=== PATIENT | female | born 1950 | race Caucasian/White ===

== ENCOUNTER 2017-02-21 09:17 | Outpatient (RCR) | payer MEDICARE ==
[~2017-02-21] VITALS: Ht 147.3 cm; Wt 57.6 kg
[~2017-02-21 09:17] MED LIST changes: +ALTEPLASE RECOMB 2 MG VIAL IVP PRN; +DEXTROSE 5%(*) 100 ML BAG 100 ML IVPB PRN; +HEPARIN FLSH (PORT) 500 UN/5ML IVP PRN; +LIDOCAINE/SOD BICARB 8.4% SYR ID PRN; +NS(*) 0.9% 100 ML BAG 100 ML IVPB PRN; +NS(*) 0.9% 500 ML BAG 500 ML IV PRN; +WATER STERILE 10 ML VIAL IVP PRN
[2017-02-21 09:32] VITALS: BP 162/79
[2017-02-21 10:17] LABS: PLATELET COUNT, AUTOMATED 310 K/uL (150-450)
== END 2017-02-24 09:10 | disposition home or self-care (01) ==
LOC: SPU 09:17
PROVIDERS: ATTEND Internal Medicine Hematology
DX: C82.03 Follicular lymphoma grade I, intra-abdominal lymph nodes (principal); M81.0 Age-related osteoporosis without current pathological fracture
CPT/HCPCS: 36591; 83615; 84550; 85025; G0463; J1642; 36415; 82040; 82247; 82310; 82374; 82435; 82565; 82947; 84075; 84132; 84155; 84295; 84450; 84460; 84520; 85610; 99212

== ENCOUNTER → 2017-02-21 | Outpatient (CLI) | payer MEDICARE ==
[~2017-02-21] MED LIST: ACET-2708 PO; ALEN70TA43 PO; ALLO100T70 PO; ATOR20TA22 PO; CALC-734 PO; CALC625T80 PO; CYCL10TA29 PO; FLUT9.9S; GLIP-175 PO; GLIP2.5T14 PO; GUAI1200 PO; HCTZ25 PO; HYDR-385 PO; HYDR-4309 PO; LEV75 PO; LIS10 PO; LISI-362 PO; LISI5TAB25 PO; LOR5 PO; LORA-1456 PO; LORA-799 PO; METF-410 PO; METH4TAB66 PO; PIOG30TA27 PO; POTA20TA85 PO; POTA99TA6 PO; PROC10TA4 PO; WAR5 PO; [UNRECOGNIZED DRUG - CODE] PO
[2017-02-21 11:38] LABS: INR 2.51
== END ==
LOC: LAB 11:13
PROVIDERS: ATTEND Nurse Practitioner Family
DX: Z51.81 Encounter for therapeutic drug level monitoring (principal); Z79.01 Long term (current) use of anticoagulants
CPT/HCPCS: 36415; 85610

== ENCOUNTER → 2017-02-21 | Outpatient (CLI) | payer MEDICARE ==
--- NOTE | 2017-02-21 17:13 | ONCOLOGY FOLLOW UP NOTE ---
EVENT DATE: February 21, 2017 DIAGNOSES 1. Stage IV follicular lymphoma, grade 1. 2. History of skin cancer. 3. History of blood clots, on lifelong anticoagulation. 4. Diabetes mellitus. 5. Hypothyroidism. 6. Osteoporosis. 7. History of glaucoma. CHIEF COMPLAINT The patient is here today for followup of her follicular lymphoma. ONCOLOGY HISTORY The patient is a 66-year-old female. PRESENTATION Abdominal pain. DIAGNOSTIC EVALUATION CT scan abdomen and pelvis revealed a 12 cm abdominal mass invading into the mesentery. PROCEDURE CT scan-guided biopsy of the abdominal mass done on April 29, 2013 revealed a B- cell lymphoma consistent with low-grade follicular lymphoma, grade 1. STAGING WORKUP 1. PET/CT scan done on June 07, 2013 revealed hypermetabolic lymphoma in the neck, chest, abdomen and pelvis. 2. Bone marrow aspiration biopsy done on June 01, 2013 was positive for non- Hodgkins lymphoma of follicular center cell origin. STAGE Stage IV follicular lymphoma, grade 1. TREATMENT 1. The patient will start treatment with rituximab and bendamustine on June 30, 2013. The patient completed 8 courses of rituximab and bendamustine on January 20, 2014. 2. The patient has started maintenance rituximab therapy on March 16, 2014. The patient completed 12 courses of maintenance rituximab therapy on January. HISTORY OF PRESENT ILLNESS Patient is here today for followup of her follicular lymphoma in remission. She is complaining of cough with expectoration recently. She is weak, tired and fatigued, but other than that she denies any other problem. She denies any B symptoms. PAST MEDICAL HISTORY 1. Skin cancers. 2. Blood clots, arterial, on lifelong anticoagulation. 3. Diabetes. 4. Hypothyroidism. 5. Osteoporosis. 6. History of glaucoma. PAST SURGICAL HISTORY 1. section. 2. Rotator cuff repair. 3. Right leg arterial clot removed. SOCIAL HISTORY Spouse from cancer. She does not drink, but she does smoke four to six cigarettes per day. She is interested in quitting at this time, but will consider. She does not chew tobacco or utilize illicit drugs. FAMILY HISTORY Sisters with basal cell carcinomas. MEDICATIONS 1. Lorazepam 1 mg tablet q.4-6 hourly as needed for nausea or vomiting. 2. Fosamax 70 mg weekly. 3. Calcium with vitamin D 1 tablet daily. 4. Lisinopril 10 mg daily. 5. Glipizide 2.5 mg once daily. 6. Flonase allergy relief spray. 7. Tylenol PM p.r.n. at bedtime. 8. Metformin 500 mg twice daily. 9. Levothyroxine 88 mcg daily. 10. Hydrochlorothiazide 25 mg daily. 11. Warfarin 10 mg daily. ALLERGIES CLINDAMYCIN. REVIEW OF SYSTEMS CONSTITUTIONAL: The patient has chills sometimes. HEENT: Ears: No tinnitus or hearing problem. Nose: She has nasal discharge. Throat: No sore throat or mouth ulcers. Eyes: No diplopia or visual changes. RESPIRATORY: She has cough and expectoration from recent upper respiratory tract infection. GASTROINTESTINAL: She has occasional nausea. MUSCULOSKELETAL: She has pain in the knees. HEMATOLOGICAL: She is weak, tired and fatigued. CARDIOVASCULAR: No chest pain, orthopnea, or paroxysmal nocturnal dyspnea (PND) . No edema. No palpitations. GENITOURINARY: She has recurrent UTI lately. NEUROLOGICAL: No tingling or numbness in the hands or feet. No headaches or convulsions. SKIN: No skin rash or lumps. PSYCHIATRIC: No anxiety or depression. PHYSICAL EXAMINATION GENERAL: Looks stable. Well-developed, well-nourished, and in no acute distress. VITAL SIGNS: Blood pressure 167/79, pulse 72 per minute, respirations 16 per minute, temperature 98.2, pulse ox 97% on room air. HEENT: Head: Atraumatic. Positive for sinus tenderness to palpation in the frontal sinuses. Eyes: No icterus or conjunctivitis. Mouth and throat: No oral thrush or mucositis. Posterior pharynx erythema. NECK: Supple. No cervical or supraclavicular lymphadenopathy. LUNGS: Clear to auscultation and percussion bilaterally. HEART: Regular rate and rhythm. No gallops, murmurs, clicks or rubs. ABDOMEN: Soft and non-tender. No hepatosplenomegaly. No masses. EXTREMITIES: No cyanosis, clubbing or edema. LYMPHATICS: The bilateral palpable axillary lymph nodes are essentially resolved after one cycle of bendamustine. NEUROLOGICAL: Conscious, alert and oriented times three. Cranial nerves II through XII are grossly intact. PSYCHIATRIC: Mood and affect appear normal. SKIN: No skin rash, bruise or purpuric eruption. DIAGNOSTIC DATA Pending. ASSESSMENT 1. Stage IV follicular lymphoma grade 1 with involvement of lymph nodes in the neck, chest, abdomen and pelvis with involvement of the bone marrow, proven by bone marrow biopsy done June 01, 2013. Patient received eight cycles of rituximab and bendamustine between July 01, 2013 through January 17, 2014. She received after that 12 courses of maintenance rituximab therapy between March 16, 2014 through January 25, 2016. She is currently in complete remission. I am planning to continue followup. I will see her again in four months with CBC , chem panel, LDH and uric acid. 2. History of blood clots, on lifelong anticoagulation. 3. Hypothyroidism, on treatment. 4. Diabetes mellitus, on treatment. 5. Osteoporosis, on Fosamax. PLAN 1. Continue followup. 2. Patient to return in four months with CBC, chem panel, LDH, uric acid. 3. Patient is to contact us for any new concerns or complaints. MTDD
== END ==
LOC: SPU 09:43
PROVIDERS: ATTEND Nurse Practitioner Family
DX: Z85.72 Personal history of non-Hodgkin lymphomas (principal); Z79.01 Long term (current) use of anticoagulants; E03.9 Hypothyroidism, unspecified; E11.9 Type 2 diabetes mellitus without complications; M85.80 Other specified disorders of bone density and structure, unspecified site; Z85.828 Personal history of other malignant neoplasm of skin; R05 Cough; R53.1 Weakness; R53.83 Other fatigue

== ENCOUNTER → 2017-02-27 | Outpatient (CLI) | payer MEDICARE ==
[~2017-02-27] MED LIST changes: -ALTEPLASE RECOMB 2 MG VIAL IVP PRN; -DEXTROSE 5%(*) 100 ML BAG 100 ML IVPB PRN; -HEPARIN FLSH (PORT) 500 UN/5ML IVP PRN; -LIDOCAINE/SOD BICARB 8.4% SYR ID PRN; -NS(*) 0.9% 100 ML BAG 100 ML IVPB PRN; -NS(*) 0.9% 500 ML BAG 500 ML IV PRN; -WATER STERILE 10 ML VIAL IVP PRN
--- NOTE | 2017-02-27 13:36 | RADIOLOGY IMAGING REPORT ---
FACILITY: [facility] PATIENT NAME: Mable Villela : 1950 MR: [id number] V: [id number] EXAM DATE: ORDERING PHYSICIAN: KIMBERLY CLEMENTS TECHNOLOGIST: Location: [facility] Patient: Mable Villela : 1950 Visit/Account:[id number] Date of Sevice: 02/27/2017 Exam type: CHEST PA AND LAT History: Copy x1 week, shortness of breath Comparison: May 23, 2015. Findings: There is mild hyperinflation lung quinones. This mild increased bronchovascular markings in the medial right lung base. There is no evidence of pleural effusions or pulmonary edema. There is a right IJ implanted port distal tip projects over the superior vena cava. Cardiac silhouette is normal IMPRESSION: 1. There is a mild increase in the bronchial vascular markings the medial right lung base which may represent underlying infiltrate and/or atelectasis. Follow-up chest recommended to assure complete c learing Report Dictated By: Annette Gold MD at 02/27/2017 1:30 PM Report E-Signed By: Annette Gold MD at 02/27/2017 1:32 PM ERICN:BRIAN
== END ==
LOC: RAD 12:46
PROVIDERS: ATTEND Nurse Practitioner Family
DX: R05 Cough (principal); R06.02 Shortness of breath
CPT/HCPCS: 71046

== ENCOUNTER → 2017-03-12 | Outpatient (CLI) | payer MEDICARE ==
--- NOTE | 2017-03-12 11:40 | RADIOLOGY IMAGING REPORT ---
FACILITY: [facility] [place] PATIENT NAME: Mable Villela : 1950 MR: [id number] V: [id number] EXAM DATE: ORDERING PHYSICIAN: KIMBERLY CLEMENTS TECHNOLOGIST: Location: [facility] [place] Patient: Mable Villela : 1950 Visit/Account:[id number] Date of Sevice: 03/12/2017 Exam type: CHEST PA AND LAT History: Productive cough and difficulty breathing x1 month Comparison: February 27, 2017. Findings: Increased bronchial vascular markings in the medial right lung base appears similar to the prior stud y. There is no evidence of pleural effusions or overt pulmonary edema. Cardiac silhouette is normal in size. His right IJ implanted port the distal tip projecting over the superior vena cava. IMPRESSION: 1. Increased buckle vascular markings the medial right lung base persist and appear similar to the p rior study. This could represent underlying infiltrate and/or atelectasis. Report Dictated By: Annette Gold MD at 03/12/2017 11:33 AM Report E-Signed By: Annette Gold MD at 03/12/2017 11:35 AM WSN:[email or web address]
== END ==
LOC: RAD 11:08
PROVIDERS: ATTEND Nurse Practitioner Family
DX: R91.8 Other nonspecific abnormal finding of lung field (principal)
CPT/HCPCS: 71046

== ENCOUNTER → 2017-04-03 | Outpatient (CLI) | payer MEDICARE ==
[2017-04-03 13:10] LABS: INR 1.96
== END ==
LOC: LAB 12:25
PROVIDERS: ATTEND Nurse Practitioner Family
DX: Z51.81 Encounter for therapeutic drug level monitoring (principal); Z79.01 Long term (current) use of anticoagulants
CPT/HCPCS: 36415; 85610

== ENCOUNTER → 2017-05-20 | Outpatient (CLI) | payer MEDICARE ==
[2017-05-20 14:10] LABS: INR 2.07
== END ==
LOC: LAB 13:44
PROVIDERS: ATTEND Nurse Practitioner Family
DX: Z51.81 Encounter for therapeutic drug level monitoring (principal); Z79.01 Long term (current) use of anticoagulants
CPT/HCPCS: 36415; 85610

== ENCOUNTER 2017-05-23 09:21 | Outpatient (RCR) | payer MEDICARE ==
[2017-03-21 09:30] VITALS: BP 144/98
[2017-03-21] MEDS: LIDOCAINE/SOD BICARB 8.4% SYR ID PRN (09:39)
[2017-03-21] MEDS: HEPARIN FLSH (PORT) 500 UN/5ML IVP PRN (09:40)
[2017-04-18 09:33] VITALS: BP 165/83
[2017-04-18] MEDS: HEPARIN FLSH (PORT) 500 UN/5ML IVP PRN (09:43)
[2017-04-18] MEDS: LIDOCAINE/SOD BICARB 8.4% SYR ID PRN (09:43)
[~2017-05-23 09:21] MED LIST changes: +ALTEPLASE RECOMB 2 MG VIAL IVP PRN; +DEXTROSE 5%(*) 100 ML BAG 100 ML IVPB PRN; +NS(*) 0.9% 100 ML BAG 100 ML IVPB PRN; +NS(*) 0.9% 500 ML BAG 500 ML IV PRN; +WATER STERILE 10 ML VIAL IVP PRN
[2017-05-23 09:26] VITALS: BP 179/89
[2017-05-23] MEDS: HEPARIN FLSH (PORT) 500 UN/5ML IVP PRN (09:33)
[2017-05-23] MEDS: LIDOCAINE/SOD BICARB 8.4% SYR ID PRN (09:33)
== END 2017-06-18 ==
LOC: SPU 09:21
PROVIDERS: ATTEND Internal Medicine Hematology
DX: C82.03 Follicular lymphoma grade I, intra-abdominal lymph nodes (principal)
CPT/HCPCS: 96523; J1642

== ENCOUNTER 2017-06-19 07:41 | Outpatient (RCR) | payer MEDICARE ==
[~2017-06-19 07:41] MED LIST changes: -ALTEPLASE RECOMB 2 MG VIAL IVP PRN; -DEXTROSE 5%(*) 100 ML BAG 100 ML IVPB PRN; -METF-410 PO; +METF-411 PO; -NS(*) 0.9% 100 ML BAG 100 ML IVPB PRN; -NS(*) 0.9% 500 ML BAG 500 ML IV PRN; -WATER STERILE 10 ML VIAL IVP PRN
[2017-06-19 09:49] VITALS: BP 164/69
[2017-06-19] MEDS ORDERED: WATER FOR INJ,STERILE 20 ML IVP PRN (10:00)
[2017-06-19] MEDS ORDERED: ALTEPLASE RECOMB 2 MG VIAL IVP PRN (10:00)
[2017-06-19] MEDS ORDERED: NS(*) 0.9% 500 ML BAG 500 ML IV PRN (10:00)
[2017-06-19] MEDS ORDERED: HEPARIN FLSH (PORT) 500 UN/5ML IVP PRN (10:00)
[2017-06-19] MEDS ORDERED: NS(*) 0.9% 100 ML BAG 100 ML IVPB PRN (10:00)
[2017-06-19] MEDS ORDERED: LIDOCAINE/SOD BICARB 8.4% SYR ID PRN (10:00)
[2017-06-19] MEDS ORDERED: DEXTROSE 5%(*) 100 ML BAG 100 ML IVPB PRN (10:00)
--- NOTE | 2017-06-19 16:33 | ONCOLOGY FOLLOW UP NOTE ---
EVENT DATE: June 19, 2017 DIAGNOSES 1. Stage IV follicular lymphoma, grade 1. 2. History of skin cancer. 3. History of blood clots, on lifelong anticoagulation. 4. Diabetes mellitus. 5. Hypothyroidism. 6. Osteoporosis. 7. History of glaucoma. CHIEF COMPLAINT The patient is here today for followup of her follicular lymphoma. ONCOLOGY HISTORY The patient is a 66-year-old female. PRESENTATION Abdominal pain. DIAGNOSTIC EVALUATION CT scan abdomen and pelvis revealed a 12 cm abdominal mass invading into the mesentery. PROCEDURE CT scan-guided biopsy of the abdominal mass done on April 29, 2013 revealed a B- cell lymphoma consistent with low-grade follicular lymphoma, grade 1. STAGING WORKUP 1. PET/CT scan done on June 07, 2013 revealed hypermetabolic lymphoma in the neck, chest, abdomen and pelvis. 2. Bone marrow aspiration biopsy done on June 01, 2013 was positive for non- Hodgkins lymphoma of follicular center cell origin. STAGE Stage IV follicular lymphoma, grade 1. TREATMENT 1. The patient will start treatment with rituximab and bendamustine on June 30, 2013. The patient completed 8 courses of rituximab and bendamustine on January 20, 2014. 2. The patient has started maintenance rituximab therapy on March 16, 2014. The patient completed 12 courses of maintenance rituximab therapy on January. HISTORY OF PRESENT ILLNESS Patient is here today for followup of her follicular lymphoma stage IV. Patient is doing fine currently. She has some constipation, using fiber for that. She has also some fatigue sometimes, but other than that she is really doing very well. Patient denies any B symptoms. PAST MEDICAL HISTORY 1. Skin cancers. 2. Blood clots, arterial, on lifelong anticoagulation. 3. Diabetes. 4. Hypothyroidism. 5. Osteoporosis. 6. History of glaucoma. PAST SURGICAL HISTORY 1. section. 2. Rotator cuff repair. 3. Right leg arterial clot removed. SOCIAL HISTORY Spouse from cancer. She does not drink, but she does smoke four to six cigarettes per day. She is interested in quitting at this time, but will consider. She does not chew tobacco or utilize illicit drugs. FAMILY HISTORY Sisters with basal cell carcinomas. MEDICATIONS 1. Lorazepam 1 mg tablet q.4-6 hourly as needed for nausea or vomiting. 2. Fosamax 70 mg weekly. 3. Calcium with vitamin D 1 tablet daily. 4. Lisinopril 10 mg daily. 5. Glipizide 2.5 mg once daily. 6. Flonase allergy relief spray. 7. Tylenol PM p.r.n. at bedtime. 8. Metformin 500 mg twice daily. 9. Levothyroxine 88 mcg daily. 10. Hydrochlorothiazide 25 mg daily. 11. Warfarin 10 mg daily. ALLERGIES CLINDAMYCIN. REVIEW OF SYSTEMS CONSTITUTIONAL: The patient has chills sometimes. HEENT: Ears: No tinnitus or hearing problem. Nose: She has nasal discharge. Throat: No sore throat or mouth ulcers. Eyes: No diplopia or visual changes. RESPIRATORY: She has cough and expectoration from recent upper respiratory tract infection. GASTROINTESTINAL: She has constipation, on fiber. MUSCULOSKELETAL: She has pain in the knees. HEMATOLOGICAL: She is weak, tired and fatigued. CARDIOVASCULAR: No chest pain, orthopnea, or paroxysmal nocturnal dyspnea (PND) . No edema. No palpitations. GENITOURINARY: She has recurrent UTI lately. NEUROLOGICAL: No tingling or numbness in the hands or feet. No headaches or convulsions. SKIN: No skin rash or lumps. PSYCHIATRIC: No anxiety or depression. PHYSICAL EXAMINATION GENERAL: Looks stable. Well-developed, well-nourished, and in no acute distress. VITAL SIGNS: Blood pressure 164/69, pulse 64 per minute, respirations 16 per minute, temperature 98.4, pulse ox 95% on room air. HEENT: Head: Atraumatic. Positive for sinus tenderness to palpation in the frontal sinuses. Eyes: No icterus or conjunctivitis. Mouth and throat: No oral thrush or mucositis. Posterior pharynx erythema. NECK: Supple. No cervical or supraclavicular lymphadenopathy. LUNGS: Clear to auscultation and percussion bilaterally. HEART: Regular rate and rhythm. No gallops, murmurs, clicks or rubs. ABDOMEN: Soft and non-tender. No hepatosplenomegaly. No masses. EXTREMITIES: No cyanosis, clubbing or edema. LYMPHATICS: The bilateral palpable axillary lymph nodes are essentially resolved after one cycle of bendamustine. NEUROLOGICAL: Conscious, alert and oriented times three. Cranial nerves II through XII are grossly intact. PSYCHIATRIC: Mood and affect appear normal. SKIN: No skin rash, bruise or purpuric eruption. DIAGNOSTIC DATA Pending. ASSESSMENT 1. Stage IV follicular lymphoma grade 1 with involvement of lymph nodes in the neck, chest, abdomen and pelvis with involvement of the bone marrow, proven by bone marrow biopsy done June 01, 2013. Patient received eight cycles of rituximab and bendamustine between July 01, 2013 through January 17, 2014. She received after that 12 courses of maintenance rituximab therapy between March 16, 2014 through January 25, 2016. She currently in complete remission. She is already four years since her diagnosis with follicular lymphoma, and I am planning to start followup every six months. I will see her in six months from now with CBC, chem panel, LDH and uric acid. 2. History of blood clots, on lifelong anticoagulation. 3. Hypothyroidism on supplement. 4. Diabetes mellitus on treatment. 5. Osteoporosis on treatment. PLAN 1. Continue followup. 2. Patient to return in six months with CBC, chem panel, LDH, uric acid. 3. Patient is to contact us for any new concerns or complaints. MTDD
== END 2017-07-16 13:19 | disposition home or self-care (01) ==
LOC: SPU 07:41
PROVIDERS: ATTEND Internal Medicine Hematology
DX: Z85.72 Personal history of non-Hodgkin lymphomas (principal); Z92.21 Personal history of antineoplastic chemotherapy; Z79.01 Long term (current) use of anticoagulants; Z86.2 Personal history of diseases of the blood and blood-forming organs and certain disorders involving the immune mechanism; E03.9 Hypothyroidism, unspecified; E11.9 Type 2 diabetes mellitus without complications; M81.0 Age-related osteoporosis without current pathological fracture; Z85.828 Personal history of other malignant neoplasm of skin; K59.00 Constipation, unspecified; R53.83 Other fatigue; F17.210 Nicotine dependence, cigarettes, uncomplicated
CPT/HCPCS: 96523; G0463; J1642; 99212

== ENCOUNTER → 2017-06-20 | Outpatient (CLI) | payer MEDICARE ==
[~2017-06-20] MED LIST changes: +METF-410 PO; -METF-411 PO
[2017-06-20 13:17] LABS: INR 2.29
== END ==
LOC: LAB 12:30
PROVIDERS: ATTEND Nurse Practitioner Family
DX: Z51.81 Encounter for therapeutic drug level monitoring (principal); Z79.01 Long term (current) use of anticoagulants
CPT/HCPCS: 36415; 85610

== ENCOUNTER 2017-07-31 00:13 | Day surgery (SDC) | payer MEDICARE ==
[~2017-07-31] VITALS: Ht 149.9 cm; Wt 55.8 kg
[~2017-07-31 00:13] MED LIST changes: -METF-410 PO; +METF-411 PO; +WARF5TAB23 PO
[2017-07-31 06:20] VITALS: BP 184/91
[2017-07-31] MEDS ORDERED: LIDOCAINE/SOD BICARB 8.4% SYR ID ONE (06:45)
[2017-07-31] MEDS ORDERED: NORMOSOL R SOLN(*) 1000 ML BAG 1,000 ML IV PRN (06:45)
--- NOTE | 2017-07-31 06:50 | Post Operative Progress Note ---
Post Operative Progress Note Date: Jul 31, 2017 Time: 08:22 Surgeon: sanya Anesthesia: dr taylor Pre-Op Diagnosis: screening colonoscopy Post-Op Diagnosis: normal colonoscopy Procedure(s): colonoscopy MELISSA MAXWELL MD Jul 31, 2017 06:50
--- NOTE | 2017-07-31 06:51 | Short(Outpt) Discharge Summary ---
Discharge Summary Reason for Hosp/Final Diag: (1) Encounter for screening colonoscopy Hospital Course & Plan: normal colonoscopy Departure Discharge to: Home Discharge Instructions Home Meds Reported Medications Warfarin Sodium (WARFARIN SODIUM) 5 Mg Tablet, 10 MG PO QDAY, TAB 07/24/17 Warfarin Sodium (WARFARIN SODIUM) 5 Mg Tablet, 7.5 MG PO QDAY, TAB 07/24/17 Lisinopril (LISINOPRIL) 10 Mg Tablet, 10 MG PO QDAY 07/06/14 Fluticasone Propionate (Flonase Allergy Relief) 9.9 Ml [place].susp 05/11/14 Acetaminophen/Diphenhydramine (ACETAMINOPHEN PM CAPLET) 1 Each Tablet, 1 EACH PO QHS, TAB 01/19/14 Metformin Hcl (METFORMIN HCL) 500 Mg Tablet, 1 TAB PO BID TAKE ONE TABLET BY MOUTH TWO TIMES A DAY WITH FOOD 05/28/13 Levothyroxine Sodium (Synthroid/Levothroid) 0.075 Mg Tab, 88 MCG PO QDAY, 0 Refills 03/23/08 Hydrochlorothiazide (Hydrochlorothiazide) 25 Mg Tab, 25 MG PO QDAY 03/23/08 Discontinued Reported Medications Alendronate Sodium (FOSAMAX) 70 Mg Tablet, 70 MG PO 10/27/14 Calcium Carbonate/Vitamin D3 (CALCIUM 500 + D TABLET) 1 Each Tablet, 1 EACH PO QDAY 07/06/14 Glipizide (GLIPIZIDE ER) 2.5 Mg Tab.er.24, 2.5 MG PO QDAY 07/06/14 Warfarin Sod (Coumadin (Or Equiv)) 5 Mg Tab, 5 MG PO QDAY 2 TABS DAILY 03/23/08 Diet: Regular Activity: As Tolerated MELISSA MAXWELL MD Jul 31, 2017 06:50
[2017-07-31] MEDS ORDERED: LABETALOL HCL 20 MG/4 ML SYR ONE (08:03)
[2017-07-31] MEDS ORDERED: PROPOFOL(*)1000 MG/100 ML VIAL 100 ML ONE (08:03)
--- NOTE | 2017-07-31 09:50 | OPERATIVE REPORT 1 ---
EVENT DATE: 07/31/17 SURGEON: Bayron Devlin M.D. ANESTHESIOLOGIST: Dr. Padgett ANESTHESIA: Sedation PREOPERATIVE DIAGNOSIS 1. Screening colonoscopy. POSTOPERATIVE DIAGNOSIS 2. Normal appearing colonoscopic examination. PROCEDURE PERFORMED 1. Colonoscopy. DESCRIPTION OF PROCEDURE: The patient was placed in the left lateral decubitus position, given intravenous sedation. The flexible colonoscope was inserted and advanced. I had difficulty navigating some of the turns but with persistence, some abdominal pressure, and change in positions, we were able to reach the cecum. She had an excellent bowel prep. The ileocecal valve and __ were identified. The scope was slowly withdrawn. No mucosal abnormalities were noted in the cecum, right colon, transverse, descending or sigmoid colon. The rectum was normal. The scope was retroflexed and that appeared to be normal. She will repeat another colonoscopy in 10 years. LIVAN
== END 2017-07-31 09:15 | disposition home or self-care (01) ==
LOC: OR 00:13
PROVIDERS: ATTEND Surgery
DX: Z12.11 Encounter for screening for malignant neoplasm of colon (principal); E11.9 Type 2 diabetes mellitus without complications; I10 Essential (primary) hypertension; Z86.718 Personal history of other venous thrombosis and embolism; Z79.01 Long term (current) use of anticoagulants; Z80.0 Family history of malignant neoplasm of digestive organs
CPT/HCPCS: 00812; 36416; 82948; G0121; J2704; J3490

== ENCOUNTER → 2017-08-15 | Outpatient (CLI) | payer MEDICARE ==
[2017-08-15 09:04] LABS: LDL CHOLESTEROL 131 mg/dl
== END ==
LOC: LAB 08:31
PROVIDERS: ATTEND Nurse Practitioner Family
DX: E11.9 Type 2 diabetes mellitus without complications (principal); E78.5 Hyperlipidemia, unspecified; E03.9 Hypothyroidism, unspecified
CPT/HCPCS: 36415; 82040; 82247; 82310; 82374; 82435; 82465; 82565; 82947; 83036; 83718; 84075; 84132; 84155; 84295; 84443; 84450; 84460; 84478; 84520

== ENCOUNTER → 2017-09-23 | Outpatient (CLI) | payer MEDICARE ==
[2017-09-23 10:43] LABS: INR 2.15
== END ==
LOC: LAB 10:03
PROVIDERS: ATTEND Nurse Practitioner Family
DX: Z79.01 Long term (current) use of anticoagulants (principal)
CPT/HCPCS: 36415; 85610

== ENCOUNTER → 2017-11-03 | Outpatient (CLI) | payer MEDICARE ==
[~2017-11-03] MED LIST changes: -METF-411 PO; +METF-450 PO
[2017-11-03 12:22] LABS: INR 1.9
== END ==
LOC: LAB 11:51
PROVIDERS: ATTEND Nurse Practitioner Family
DX: Z51.81 Encounter for therapeutic drug level monitoring (principal); Z79.01 Long term (current) use of anticoagulants
CPT/HCPCS: 36415; 85610

== ENCOUNTER → 2017-12-17 | Outpatient (CLI) | payer MEDICARE ==
[~2017-12-17] MED LIST changes: -HYDR-4309 PO; +HYDR-653 PO
[2017-12-17 13:14] LABS: INR 1.94
== END ==
LOC: LAB 12:45
PROVIDERS: ATTEND Nurse Practitioner Family
DX: Z51.81 Encounter for therapeutic drug level monitoring (principal); Z79.01 Long term (current) use of anticoagulants
CPT/HCPCS: 36415; 85610

== ENCOUNTER 2017-12-18 09:23 | Outpatient (RCR) | payer MEDICARE ==
[2017-09-24] MEDS: HEPARIN FLSH (PORT) 500 UN/5ML IVP PRN (11:49)
[2017-09-24] MEDS: LIDOCAINE/SOD BICARB 8.4% SYR ID PRN (11:50)
[2017-10-29 11:45] VITALS: BP 157/78
[2017-10-29] MEDS: HEPARIN FLSH (PORT) 500 UN/5ML IVP PRN (11:45)
[2017-10-29] MEDS: LIDOCAINE/SOD BICARB 8.4% SYR ID PRN (11:45)
[2017-12-03 11:31] VITALS: BP 145/60
[2017-12-03] MEDS: LIDOCAINE/SOD BICARB 8.4% SYR ID PRN (11:40)
[2017-12-03] MEDS: HEPARIN FLSH (PORT) 500 UN/5ML IVP PRN (11:40)
[~2017-12-18 09:23] MED LIST changes: +ALTEPLASE RECOMB 2 MG VIAL IVP PRN; +DEXTROSE 5%(*) 100 ML BAG 100 ML IVPB PRN; +NS(*) 0.9% 100 ML BAG 100 ML IVPB PRN; +NS(*) 0.9% 500 ML BAG 500 ML IV PRN; +WATER FOR INJ,STERILE 20 ML IVP PRN
[2017-12-18 09:36] VITALS: BP 176/79
[2017-12-18 09:57] LABS: PLATELET COUNT, AUTOMATED 347 K/uL (150-450)
[2017-12-18] MEDS: HEPARIN FLSH (PORT) 500 UN/5ML IVP PRN (10:20)
[2017-12-18] MEDS: LIDOCAINE/SOD BICARB 8.4% SYR ID PRN (10:20)
--- NOTE | 2017-12-18 23:20 | [facility] ONCOLOGY NOTE ---
EVENT DATE: December 18, 2017 DIAGNOSES 1. Stage IV follicular lymphoma, grade 1. 2. History of skin cancer. 3. History of blood clots, on lifelong anticoagulation. 4. Diabetes mellitus. 5. Hypothyroidism. 6. Osteoporosis. 7. History of glaucoma. CHIEF COMPLAINT The patient is here today for followup of her follicular lymphoma. ONCOLOGY HISTORY The patient is a 67-year-old female. PRESENTATION Abdominal pain. DIAGNOSTIC EVALUATION CT scan abdomen and pelvis revealed a 12 cm abdominal mass invading into the mesentery. PROCEDURE CT scan-guided biopsy of the abdominal mass done on April 29, 2013 revealed a B- cell lymphoma consistent with low-grade follicular lymphoma, grade 1. STAGING WORKUP 1. PET/CT scan done on June 07, 2013 revealed hypermetabolic lymphoma in the neck, chest, abdomen and pelvis. 2. Bone marrow aspiration biopsy done on June 01, 2013 was positive for non- Hodgkins lymphoma of follicular center cell origin. STAGE Stage IV follicular lymphoma, grade 1. TREATMENT 1. The patient will start treatment with rituximab and bendamustine on June 30, 2013. The patient completed 8 courses of rituximab and bendamustine on January 20, 2014. 2. The patient has started maintenance rituximab therapy on March 16, 2014. The patient completed 12 courses of maintenance rituximab therapy on January 25, 2016. HISTORY OF PRESENT ILLNESS Patient is here today for followup of her stage IV follicular lymphoma. She is doing fine currently. She is complaining of some cough with expectoration. She had a recovered sinus infection lately. She has also occasional diarrhea. She is weak, tired, and fatigued, but other than that she is really doing fine. Denies any B symptoms. PAST MEDICAL HISTORY 1. Skin cancers. 2. Blood clots, arterial, on lifelong anticoagulation. 3. Diabetes. 4. Hypothyroidism. 5. Osteoporosis. 6. History of glaucoma. PAST SURGICAL HISTORY 1. section. 2. Rotator cuff repair. 3. Right leg arterial clot removed. SOCIAL HISTORY Spouse from cancer. She does not drink, but she does smoke four to six cigarettes per day. She is interested in quitting at this time, but will consider. She does not chew tobacco or utilize illicit drugs. FAMILY HISTORY Sisters with basal cell carcinomas. MEDICATIONS 1. Lorazepam 1 mg tablet q.4-6 hourly as needed for nausea or vomiting. 2. Fosamax 70 mg weekly. 3. Calcium with vitamin D 1 tablet daily. 4. Lisinopril 10 mg daily. 5. Glipizide 2.5 mg once daily. 6. Flonase allergy relief spray. 7. Tylenol PM p.r.n. at bedtime. 8. Metformin 500 mg twice daily. 9. Levothyroxine 88 mcg daily. 10. Hydrochlorothiazide 25 mg daily. 11. Warfarin 10 mg daily. ALLERGIES CLINDAMYCIN. REVIEW OF SYSTEMS CONSTITUTIONAL: No appetite or weight change. No fever, chills or sweating. No recent infection. HEENT: Ears: No tinnitus or hearing problem. Nose: She has nasal discharge. She had a recovered sinus infection lately. Throat: No sore throat or mouth ulcers. Eyes: No diplopia or visual changes. RESPIRATORY: She has cough with expectoration. CARDIOVASCULAR: No chest pain, orthopnea, or paroxysmal nocturnal dyspnea (PND). No edema. No palpitations. GASTROINTESTINAL: She has occasional diarrhea. GENITOURINARY: No hematuria or dysuria. MUSCULOSKELETAL: No pain in the muscles, joints or bones. NEUROLOGICAL: No tingling or numbness in the hands or feet. No headaches or convulsions. HEMATOLOGIC/LYMPHATIC: She is weak, tired, and fatigued. SKIN: No skin rash or lumps. PSYCHIATRIC: No anxiety or depression. PHYSICAL EXAMINATION GENERAL: Looks stable. Well-developed, well-nourished, and in no acute distress. VITAL SIGNS: Blood pressure 176/79, pulse 53 per minute, respirations 16 per minute, temperature 98, pulse oximetry 98% on room air. HEENT: Head: Atraumatic. No sinus tenderness to palpation. Eyes: No icterus or conjunctivitis. Mouth and throat: No oral thrush or mucositis. NECK: Supple. No cervical or supraclavicular lymphadenopathy. LUNGS: Clear to auscultation and percussion bilaterally. HEART: Regular rate and rhythm. No gallops, murmurs, clicks or rubs. ABDOMEN: Soft and lax. No tenderness. No hepatosplenomegaly. No masses. EXTREMITIES: No cyanosis, clubbing or edema. LYMPHATICS: No peripheral lymphadenopathy. NEUROLOGICAL: Conscious, alert and oriented times three. No focal motor or sensory deficits. PSYCHIATRIC: Mood and affect appear normal. SKIN: No skin rash, bruise or purpuric eruption. DIAGNOSTIC DATA CBC showed a white count of 6.6, hemoglobin 14.8, hematocrit 42.6, platelets 347,000. ASSESSMENT 1. Stage IV follicular lymphoma grade 1 with involvement of the lymph nodes in the neck, chest, abdomen and pelvis, with involvement of the bone marrow, proven by bone marrow biopsy done June 01, 2013. Patient received eight cycles of rituximab and bendamustine between July 01, 2013, through January 17, 2014. She received after that 12 courses of maintenance rituximab therapy between March 16, 2014, through January 25, 2016. She currently in complete remission. Her blood count looks very good today. I am planning to continue followup. will see her again in six months with CBC, chem panel, LDH and uric acid. 2. History of blood clots, on lifelong anticoagulation. 3. Hypothyroidism on supplement. 4. Diabetes mellitus on treatment. 5. Osteoporosis on treatment. PLAN 1. Continue followup. 2. Patient to return in six months with CBC, chem panel, LDH, uric acid. 3. Patient is to contact us for any new concerns or complaints. RACHELD
== END 2017-12-22 ==
LOC: SPU 09:23
PROVIDERS: ATTEND Internal Medicine Hematology
DX: C82.03 Follicular lymphoma grade I, intra-abdominal lymph nodes (principal); Z92.21 Personal history of antineoplastic chemotherapy; Z79.01 Long term (current) use of anticoagulants; Z86.2 Personal history of diseases of the blood and blood-forming organs and certain disorders involving the immune mechanism; E03.9 Hypothyroidism, unspecified; E11.9 Type 2 diabetes mellitus without complications; M81.0 Age-related osteoporosis without current pathological fracture; Z85.828 Personal history of other malignant neoplasm of skin; K59.00 Constipation, unspecified; R53.83 Other fatigue; F17.210 Nicotine dependence, cigarettes, uncomplicated
CPT/HCPCS: 36591; 83615; 84550; 85025; 96523; G0463; J1642; 82040; 82247; 82310; 82374; 82435; 82565; 82947; 84075; 84132; 84155; 84295; 84450; 84460; 84520; 99212

== ENCOUNTER → 2018-02-24 | Outpatient (CLI) | payer MEDICARE ==
[~2018-02-24] MED LIST changes: -ALTEPLASE RECOMB 2 MG VIAL IVP PRN; -DEXTROSE 5%(*) 100 ML BAG 100 ML IVPB PRN; -NS(*) 0.9% 100 ML BAG 100 ML IVPB PRN; -NS(*) 0.9% 500 ML BAG 500 ML IV PRN; -WATER FOR INJ,STERILE 20 ML IVP PRN
--- NOTE | 2018-02-25 08:26 | RADIOLOGY IMAGING REPORT ---
FACILITY: [facility] - [place] PATIENT NAME: JAY KELLER : [id number] MR: [id number] V: [id number] EXAM DATE: ORDERING PHYSICIAN: KIMBERLY CLEMENTS TECHNOLOGIST: Pat Handy PROCEDURE:BILATERAL DIGITAL SCREENING MAMMOGRAM WITH CAD ASSISTED INTERPRETATION & 3D TOMOSYNTHESIS COMPARISON:Prior mammograms 01/31/17, 01/31/16, 07/28/15, 01/31/15, 01/16/15. INDICATIONS:SCREENING FINDINGS: The breasts are heterogeneously dense which may obscure small masses. The parenchymal pattern has remained stable allowing for difference in mammographic technique & patient positioning. There is a stereotactic biopsy clip in the 12 o'clock retroareolar portion of the Right breast. There is implanted port also seen along the posterior upper 1/3 of the Right breast on the Right MLO view. DIAGNOSTIC CATEGORY 2--BENIGN FINDING. RECOMMENDATIONS: ROUTINE MAMMOGRAM AND CLINICAL EVALUATION. IMPRESSION: BIRADS 2: Benign finding. No significant abnormality is seen. Dictated by: Annette Gold M.D. on 02/24/2018 at 16:46 Transcribed by: LYSSA on 02/25/2018 at 7:57 Approved by: Annette Gold M.D. on 02/25/2018 at 8:25 [facility]
== END ==
LOC: MAMO 00:48
PROVIDERS: ATTEND Nurse Practitioner Family
DX: Z12.31 Encounter for screening mammogram for malignant neoplasm of breast (principal)
CPT/HCPCS: 77063; 77067

== ENCOUNTER → 2018-03-09 | Outpatient (CLI) | payer MEDICARE ==
[2018-03-09 08:59] LABS: INR 2.25
[2018-03-09 09:53] LABS: LDL CHOLESTEROL 96 mg/dl
== END ==
LOC: LAB 08:32
PROVIDERS: ATTEND Nurse Practitioner Family
DX: Z51.81 Encounter for therapeutic drug level monitoring (principal); Z79.01 Long term (current) use of anticoagulants; E03.9 Hypothyroidism, unspecified; E78.5 Hyperlipidemia, unspecified; E11.9 Type 2 diabetes mellitus without complications
CPT/HCPCS: 36415; 82040; 82247; 82310; 82374; 82435; 82465; 82565; 82947; 83036; 83718; 84075; 84132; 84155; 84295; 84443; 84450; 84460; 84478; 84520; 85610

== ENCOUNTER 2018-03-25 11:25 | Outpatient (RCR) | payer MEDICARE ==
[2018-01-21 11:45] VITALS: BP 148/78
[2018-01-21] MEDS: LIDOCAINE/SOD BICARB 8.4% SYR ID PRN (12:00)
[2018-01-21] MEDS: HEPARIN FLSH (PORT) 500 UN/5ML IVP PRN (12:05)
[2018-02-18] MEDS: LIDOCAINE/SOD BICARB 8.4% SYR ID PRN (13:19)
[2018-02-18] MEDS: HEPARIN FLSH (PORT) 500 UN/5ML IVP PRN (13:19)
[~2018-03-25 11:25] MED LIST changes: +ALTEPLASE RECOMB 2 MG VIAL IVP PRN; +DEXTROSE 5%(*) 100 ML BAG 100 ML IVPB PRN; +NS(*) 0.9% 100 ML BAG 100 ML IVPB PRN; +NS(*) 0.9% 500 ML BAG 500 ML IV PRN; +WATER FOR INJ,STERILE 20 ML IVP PRN
[2018-03-25 11:35] VITALS: BP 152/79
[2018-03-25] MEDS: LIDOCAINE/SOD BICARB 8.4% SYR ID PRN (11:41)
[2018-03-25] MEDS: HEPARIN FLSH (PORT) 500 UN/5ML IVP PRN (11:42)
== END 2018-04-21 ==
LOC: SPU 11:25
PROVIDERS: ATTEND Internal Medicine Hematology
DX: C82.03 Follicular lymphoma grade I, intra-abdominal lymph nodes (principal); Z92.21 Personal history of antineoplastic chemotherapy; Z79.01 Long term (current) use of anticoagulants; Z86.2 Personal history of diseases of the blood and blood-forming organs and certain disorders involving the immune mechanism; E03.9 Hypothyroidism, unspecified; E11.9 Type 2 diabetes mellitus without complications; M81.0 Age-related osteoporosis without current pathological fracture; Z85.828 Personal history of other malignant neoplasm of skin; K59.00 Constipation, unspecified; R53.83 Other fatigue; F17.210 Nicotine dependence, cigarettes, uncomplicated
CPT/HCPCS: 96523; J1642

== ENCOUNTER → 2018-05-20 | Outpatient (CLI) | payer MEDICARE ==
[~2018-05-20] MED LIST changes: -ALTEPLASE RECOMB 2 MG VIAL IVP PRN; -DEXTROSE 5%(*) 100 ML BAG 100 ML IVPB PRN; -NS(*) 0.9% 100 ML BAG 100 ML IVPB PRN; -NS(*) 0.9% 500 ML BAG 500 ML IV PRN; -WATER FOR INJ,STERILE 20 ML IVP PRN
[2018-05-21 11:30] LABS: INR 1.81
== END ==
LOC: LAB 11:51
PROVIDERS: ATTEND Nurse Practitioner Family
DX: E11.9 Type 2 diabetes mellitus without complications (principal); E78.5 Hyperlipidemia, unspecified; E03.9 Hypothyroidism, unspecified; Z79.01 Long term (current) use of anticoagulants
CPT/HCPCS: 36415; 82040; 82247; 82310; 82374; 82435; 82465; 82565; 82947; 83036; 83718; 84075; 84132; 84155; 84295; 84443; 84450; 84460; 84478; 84520; 85610

== ENCOUNTER 2018-06-18 09:20 | Outpatient (RCR) | payer MEDICARE ==
[2018-04-22] MEDS: LIDOCAINE/SOD BICARB 8.4% SYR ID PRN (11:45)
[2018-04-22] MEDS: HEPARIN FLSH (PORT) 500 UN/5ML IVP PRN (11:45)
[2018-04-22 11:46] VITALS: BP 160/78
[2018-05-20] MEDS: LIDOCAINE/SOD BICARB 8.4% SYR ID PRN (11:36)
[2018-05-20] MEDS: HEPARIN FLSH (PORT) 500 UN/5ML IVP PRN (11:36)
--- NOTE | 2018-05-20 14:43 | NUR ---
RENAE rec'd a call from Tiffany Mmcillan (PCP) stating the patient was upset that she has received bills indicating her labs were drawn twice in February. Renae will look into this situation.
--- NOTE | 2018-06-02 10:38 | NUR ---
SW reached out to pt about the lab charge issue. Pt denied any issues at this time. TALIA will remain available to pt as needs arise.
[2018-06-17 09:33] VITALS: BP 165/86
[2018-06-17 09:52] LABS: PLATELET COUNT, AUTOMATED 293 K/uL (150-450)
[~2018-06-18 09:20] MED LIST changes: +ALTEPLASE RECOMB 2 MG VIAL IVP PRN; +DEXTROSE 5%(*) 100 ML BAG 100 ML IVPB PRN; +LEVO88TA45 PO; +LISI-374 PO; +NS(*) 0.9% 100 ML BAG 100 ML IVPB PRN; +NS(*) 0.9% 500 ML BAG 500 ML IV PRN; +WATER FOR INJ,STERILE 20 ML IVP PRN
[2018-06-18 09:24] VITALS: BP 183/82
--- NOTE | 2018-06-18 11:11 | [facility] ONCOLOGY NOTE ---
EVENT DATE: June 18, 2018 DIAGNOSES 1. Stage IV follicular lymphoma, grade 1. 2. History of skin cancer. 3. History of blood clots, on lifelong anticoagulation. 4. Diabetes mellitus. 5. Hypothyroidism. 6. Osteoporosis. 7. History of glaucoma. CHIEF COMPLAINT The patient is here today for followup of her follicular lymphoma. ONCOLOGY HISTORY The patient is a 68-year-old female. PRESENTATION Abdominal pain. DIAGNOSTIC EVALUATION CT scan abdomen and pelvis revealed a 12 cm abdominal mass invading into the mesentery. PROCEDURE CT scan-guided biopsy of the abdominal mass done on April 29, 2013 revealed a B- cell lymphoma consistent with low-grade follicular lymphoma, grade 1. STAGING WORKUP 1. PET/CT scan done on June 07, 2013 revealed hypermetabolic lymphoma in the neck, chest, abdomen and pelvis. 2. Bone marrow aspiration biopsy done on June 01, 2013 was positive for non- Hodgkins lymphoma of follicular center cell origin. STAGE Stage IV follicular lymphoma, grade 1. TREATMENT 1. The patient will start treatment with rituximab and bendamustine on June 30, 2013. The patient completed 8 courses of rituximab and bendamustine on January 20, 2014. 2. The patient has started maintenance rituximab therapy on March 16, 2014. The patient completed 12 courses of maintenance rituximab therapy on January 25, 2016. HISTORY OF PRESENT ILLNESS Patient is here today for followup of her stage IV follicular lymphoma. She is doing fine currently. She is complaining only of fatigue and nothing else. She denies any B symptoms. Patient is planning to move soon to [place] to live with her daughter there. PAST MEDICAL HISTORY 1. Skin cancers. 2. Blood clots, arterial, on lifelong anticoagulation. 3. Diabetes. 4. Hypothyroidism. 5. Osteoporosis. 6. History of glaucoma. PAST SURGICAL HISTORY 1. section. 2. Rotator cuff repair. 3. Right leg arterial clot removed. SOCIAL HISTORY Spouse from cancer. She does not drink, but she does smoke four to six cigarettes per day. She is interested in quitting at this time, but will consider. She does not chew tobacco or utilize illicit drugs. FAMILY HISTORY Sisters with basal cell carcinomas. MEDICATIONS 1. Lorazepam 1 mg tablet q.4-6 hourly as needed for nausea or vomiting. 2. Fosamax 70 mg weekly. 3. Calcium with vitamin D 1 tablet daily. 4. Lisinopril 10 mg daily. 5. Glipizide 2.5 mg once daily. 6. Flonase allergy relief spray. 7. Tylenol PM p.r.n. at bedtime. 8. Metformin 500 mg twice daily. 9. Levothyroxine 88 mcg daily. 10. Hydrochlorothiazide 25 mg daily. 11. Warfarin 10 mg daily. ALLERGIES CLINDAMYCIN. REVIEW OF SYSTEMS CONSTITUTIONAL: No appetite or weight change. No fever, chills or sweating. No recent infection. HEENT: Ears: No tinnitus or hearing problem. Nose: She has nasal discharge. She had a recovered sinus infection lately. Throat: No sore throat or mouth ulcers. Eyes: No diplopia or visual changes. RESPIRATORY: She has cough with expectoration. CARDIOVASCULAR: No chest pain, orthopnea, or paroxysmal nocturnal dyspnea (PND). No edema. No palpitations. GASTROINTESTINAL: She has occasional diarrhea. GENITOURINARY: No hematuria or dysuria. MUSCULOSKELETAL: No pain in the muscles, joints or bones. NEUROLOGICAL: No tingling or numbness in the hands or feet. No headaches or convulsions. HEMATOLOGIC/LYMPHATIC: She has weakness and fatigue. SKIN: No skin rash or lumps. PSYCHIATRIC: No anxiety or depression. PHYSICAL EXAMINATION GENERAL: Looks stable. Well-developed, well-nourished, and in no acute distress. VITAL SIGNS: Blood pressure 183/82, pulse 70 per minute, respirations 16 per minute, temperature 99.4, pulse oximetry 91% on room air. HEENT: Head: Atraumatic. No sinus tenderness to palpation. Eyes: No icterus or conjunctivitis. Mouth and throat: No oral thrush or mucositis. NECK: Supple. No cervical or supraclavicular lymphadenopathy. LUNGS: Clear to auscultation and percussion bilaterally. HEART: Regular rate and rhythm. No gallops, murmurs, clicks or rubs. ABDOMEN: Soft and lax. No tenderness. No hepatosplenomegaly. No masses. EXTREMITIES: No cyanosis, clubbing or edema. LYMPHATICS: No peripheral lymphadenopathy. NEUROLOGICAL: Conscious, alert and oriented times three. No focal motor or sensory deficits. PSYCHIATRIC: Mood and affect appear normal. SKIN: No skin rash, bruise or purpuric eruption. DIAGNOSTIC DATA CBC showed white count of 6.4, hemoglobin 14.8, hematocrit 43.6, platelets 293,000. Chem panel totally normal except sodium 130, chloride 95, blood sugar 202. ASSESSMENT 1. Stage IV follicular lymphoma grade 1 with involvement of the lymph nodes in the neck, chest, abdomen and pelvis, with involvement of the bone marrow, proven by bone marrow biopsy done June 01, 2013. Patient received eight cycles of rituximab and bendamustine between July 01, 2013, through January 17, 2014. She received after that 12 courses of maintenance rituximab therapy between March 16, 2014, through January 25, 2016. Patient currently in complete remission. Her blood counts are normal. Patient denies any B symptoms. Patient is moving to live in [place] very soon and I advised her to take her records with her until she will see an oncologist to follow with them at that time. Patient already is five years since her diagnosis. 2. History of blood clots, on lifelong anticoagulation. 3. Hypothyroidism, on supplement. 4. Diabetes mellitus, on treatment. 5. Osteoporosis, on treatment. PLAN 1. Continue followup by an oncologist or plaster foreman in [place], [place], where she is moving to. 2. Patient to contact us for any new concerns or complaints. MTDD
== END 2018-07-21 ==
LOC: ONC 09:20
PROVIDERS: ATTEND Internal Medicine Hematology
DX: Z86.2 Personal history of diseases of the blood and blood-forming organs and certain disorders involving the immune mechanism (principal); Z79.01 Long term (current) use of anticoagulants; E03.9 Hypothyroidism, unspecified; Z79.899 Other long term (current) drug therapy; E11.9 Type 2 diabetes mellitus without complications; M81.0 Age-related osteoporosis without current pathological fracture
CPT/HCPCS: 36415; 83615; 84550; 85025; 96523; G0463; J1642; 82040; 82247; 82310; 82374; 82435; 82565; 82947; 84075; 84132; 84155; 84295; 84450; 84460; 84520; 99212